=== PATIENT | male | born 1945 | race Caucasian/White ===

== ENCOUNTER 2018-04-06 10:00 | Outpatient (RCR) | payer OTHER | END 2018-04-21 | LOC: RESP 10:00 | PROVIDERS: ATTEND Internal Medicine | DX: J84.10 Pulmonary fibrosis, unspecified (principal); M06.9 Rheumatoid arthritis, unspecified | CPT/HCPCS: G0238 ×2; G0424 ×2 ==

== ENCOUNTER 2018-04-28 10:07 | Outpatient (RCR) | payer OTHER | END 2018-05-21 | LOC: RESP 10:07 | PROVIDERS: ATTEND Internal Medicine | DX: J84.10 Pulmonary fibrosis, unspecified (principal); R06.00 Dyspnea, unspecified | CPT/HCPCS: G0238; G0424 ==

== ENCOUNTER 2018-06-09 10:00 | Outpatient (RCR) | payer OTHER | END 2018-06-21 | LOC: RESP 10:00 | PROVIDERS: ATTEND Internal Medicine | DX: J84.10 Pulmonary fibrosis, unspecified (principal) | CPT/HCPCS: G0238 ×6; G0424 ×6 ==

== ENCOUNTER 2018-12-13 10:31 | Outpatient (RCR) | payer OTHER | END 2018-12-22 | LOC: RESP 10:31 | PROVIDERS: ATTEND Internal Medicine | DX: J84.9 Interstitial pulmonary disease, unspecified (principal) ==

== ENCOUNTER 2018-12-27 10:54 | Outpatient (RCR) | payer OTHER | END 2019-01-19 | LOC: RESP 10:54 | PROVIDERS: ATTEND Internal Medicine | DX: R06.00 Dyspnea, unspecified (principal); J84.9 Interstitial pulmonary disease, unspecified; J84.10 Pulmonary fibrosis, unspecified; M06.9 Rheumatoid arthritis, unspecified | CPT/HCPCS: G0238; G0424 ==